=== PATIENT | male | born 1955 | race Caucasian/White ===

== ENCOUNTER 2020-02-11 12:15 | Observation (INO) | payer MEDICARE, OTHER ==
[~2020-02-11] VITALS: Ht 193 cm; Wt 104.9 kg
--- NOTE | 2020-02-11 12:39 | NUR ---
PT WITH C/O CHEST TIGHTNESS LASTING ABOUT 30 MIN THIS AM, ACCOMPANIED WITH SOB. PT STATES HE HAS ZERO CHEST PAIN AT THIS TIME NO SOB, HOWEVER UC RECOMMENDED HE COME TO ER D/T ABNORMAL EKG. PT TO BP, CONT PULSE OX, CARD MONITOR. ERMD IN TO EVAL PT. PT EXPRESSING DESIRE TO GO HOME AT HE FEELS "FINE". ERMD CONVICED PT TO STAY FOR CARDIAC WORKUP.
[2020-02-11] MEDS ORDERED: ASPIRIN 81 MG TABLET CHEW ONE (12:45)
[2020-02-11] MEDS ORDERED: ASPIRIN 81 MG TABLET CHEW PO ONE (13:00)
[2020-02-11 13:20] LABS: BASOPHILS # (AUTO) 0.01 x10^3/uL (0-0.1); BASOPHILS % (AUTO) 0 % (0-1); EOSINOPHILS # (AUTO) 0.11 x10^3/uL (0-0.4); EOSINOPHILS % (AUTO) 2 % (1-7); LYMPHOCYTES # (AUTO) 1.36 x10^3/uL (1-3.4); LYMPHOCYTES % (AUTO) 28 % (22-44); MD NO; MEAN CORPUSCULAR HEMOGLOBIN 32.9 pg (27.5-34.5); MEAN CORPUSCULAR HGB CONC 33.7 g/dL (33.2-36.2); MEAN CORPUSCULAR VOLUME 97.7 fL (81-97); MEAN PLATELET VOLUME 10.4 fL (7.4-10.4); MONOCYTES # (AUTO) 0.38 x10^3/uL (0.2-0.8); MONOCYTES % (AUTO) 8 % (2-9); NEUTROPHILS # (AUTO) 3.09 x10^3/uL (1.8-6.8); NEUTROPHILS % (AUTO) 63 % (42-75); PLATELET COUNT 137 x10^3/uL (130-400); RED CELL DISTRIBUTION WIDTH 13.4 % (9.4-14.8)
[2020-02-11 13:27] LABS: ALANINE AMINOTRANSFERASE 32 U/L (12-78); ALBUMIN 3.9 g/dL (3.4-5.0); CALCIUM 8.9 mg/dL (8.5-10.1); CREATININE 0.98 mg/dL (0.7-1.3)
[2020-02-11 13:31] LABS: ALKALINE PHOSPHATASE 82 U/L (45-117); BILIRUBIN,TOTAL 0.8 mg/dL (0.2-1.0); TOTAL PROTEIN 7.7 g/dL (6.4-8.2); TROPONIN I < 0.015 ng/mL (0.000-0.045)
[2020-02-11 13:34] LABS: ANION GAP 6 mmol/L (5-15); CHLORIDE 108 mmol/L (98-107)
--- NOTE | 2020-02-11 14:00 | NUR ---
PTS S/O UPDATED VIA PHONE PER PT REQUEST. KODY : [phone]
[2020-02-11 15:33] LABS: TROPONIN I 0.048 ng/mL (0.000-0.045)
--- NOTE | 2020-02-11 15:59 | NUR ---
LUZ IN TO UPDATE PT. PLAN FOR PT TO BE ADMITTED, PIV INITIATED.
[2020-02-11] MEDS ORDERED: hydrALAzine 20 MG/ML, 1ML IVPush PRN (16:30)
[2020-02-11] MEDS ORDERED: OXYcodone IR 5MG TABLET PO PRN (16:30)
[2020-02-11] MEDS ORDERED: ACETAMINOPHEN 325 MG TABLET PO PRN (16:30)
[2020-02-11] MEDS ORDERED: ONDANSETRON 2MG/ML, 2ML IVPush PRN (16:30)
[2020-02-11] MEDS ORDERED: ENOXAPARIN 40 MG/0.4 ML SQ SCH (16:30)
[2020-02-11 17:11] LABS: FREE T4 (FREE THYROXINE) 0.83 ng/dL (0.76-1.46); LDL/HDL RATIO 2.4 (0.5-3.0)
[2020-02-11 17:46] VITALS: BP 155/84
[2020-02-11 19:21] VITALS: BP 138/84
[2020-02-11] MEDS ORDERED: ALLO300T PO (20:08)
[2020-02-11] MEDS ORDERED: HYDR-2443 PO (20:08)
[2020-02-11] MEDS ORDERED: ATORVASTATIN 40 MG TABLET PO SCH (21:00)
[2020-02-12 00:58] VITALS: BP 128/75
[2020-02-12 02:27] LABS: TROPONIN I 0.102 ng/mL (0.000-0.045)
[2020-02-12] MEDS ORDERED: ASPIRIN 81 MG TABLET EC PO SCH (06:00)
[2020-02-12 08:17] VITALS: BP 133/71
[2020-02-12] MEDS ORDERED: LISINOPRIL 10 MG TABLET PO SCH (09:00)
[2020-02-12] MEDS ORDERED: ALLOPURINOL 300 MG TABLET PO SCH (09:00)
[2020-02-12] MEDS ORDERED: REGADENOSON 0.4 MG/5 ML SYRINGE ONE (09:09)
[2020-02-12 13:32] VITALS: BP 135/78
[2020-02-12] MEDS ORDERED: LISI-167 PO (14:10)
== END 2020-02-12 16:02 | disposition home or self-care (01) ==
LOC: ED 12:59 → SUATTDRO 15:57 → EDIP 16:19 → INTOOBSV 16:19 → 5SO 17:35
PROVIDERS: ADMIT Hospitalist; ATTEND Hospitalist
DX: R07.89 Other chest pain (principal); M10.9 Gout, unspecified; M54.2 Cervicalgia; G89.29 Other chronic pain; I35.1 Nonrheumatic aortic (valve) insufficiency; I50.30 Unspecified diastolic (congestive) heart failure; Z77.22 Contact with and (suspected) exposure to environmental tobacco smoke (acute) (chronic)
CPT/HCPCS: 36415; 71045; 78452; 80053; 80061; 83690; 83735; 84100; 84439; 84443; 84484; 85025; 93005; 93017; 93306; 93356; 96372; 99283; 99285; A9502; G0378; J1650; J2785